=== PATIENT | male | born 1950 | race Caucasian/White ===

== ENCOUNTER → 2022-06-07 | Outpatient (CLI) | payer MEDICARE ==
--- NOTE | 2022-06-07 08:42 | US ---
EXAMINATION TYPE: US kidneys/renal and bladder DATE OF EXAM: 06/07/2022 COMPARISON: NONE CLINICAL HISTORY: C61 MALIGNANT NEOPLASM OF PROSTATE. Micro hematuria. Patient states he has prostate cancer. Hx kidney stones. EXAM MEASUREMENTS: Right Kidney: 10.7 x 5.6 x 4.4 cm Left Kidney: 10.9 x 4.8 x 5.1 cm Right Kidney: Appearance of minimal hydronephrosis/dilated renal collecting system. Anechoic appearan ce medially. Left Kidney: Appearance of slightly dilated collecting system. Bladder: Appears anechoic Bilateral Jets seen: Yes Fullness right renal pelvis without calyceal dilatation, suspect simple small thin-walled cysts centr ally right kidney. Similar findings left kidney pelvic fullness without calyceal prominence. IMPRESSION: Suspect extrarenal pelvis bilaterally. No definitive hydronephrosis.
--- NOTE | 2022-06-08 10:28 | MR ---
EXAMINATION TYPE: MR Prostate wo/w con DATE OF EXAM: 06/07/2022 COMPARISON: None. 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 TECHNIQUE: Examination was performed using a 3T MRI without an endorectal coil. Multiparametric imaging was perf ormed with T2 mutliplanar sequences, axial diffusion weighted imaging and dynamic contrast enhanced i maging, utilizing 5 mL intravenous Gadavist gadolinium contrast. FINDINGS: PROSTATE VOLUME: 5.0 cm SI x 3.5 cm AP x 5.3 cm LR Vol= 48.6 cc PSA DENSITY: 0.17 ng/ml/cc Predicted PSA equals 5.83 Slightly enlarged prostate consistent with BPH. Peripheral zone shows no areas of significant diminis hed signal on ADC mapping are restricted diffusion with some mild diffuse diminished signal on T2-philip ghted images greatest towards the base. Central transitional zone shows somewhat indistinct T2 hypoin tense area in the apex anteriorly bulging into bladder base without restricted diffusion or significa nt abnormal dynamic postcontrast enhancement. PI-RADS 2 lesion. Prostate capsule maintained. Seminal vesicles appear within normal limits. Bladder shows adequate distention with mild trabeculation. No s uspicious wall thickening. Visualized osseous structures are intact. No concerning pelvic fluid collection. IMPRESSION: A focus of clinically significant cancer is not identified. Highest Assessment Category: 2 MRI Stage: T1c N0 M0 based on review of pelvic images. False negative rates for MRI range from 5-20% depending on risk profile. Assessment Categories: 1 ? Very low (clinically significant cancer is highly unlikely to be present) 2 ? Low (clinically significant cancer is unlikely to be present) 3 ? Intermediate (the presence of clinically significant cancer is equivocal) 4 ? High (clinically significant cancer is likely to be present) 5 ? Very high (clinically significant cancer is highly likely to be present)
== END | disposition home or self-care (01) ==
LOC: RADUSWWP 07:58
PROVIDERS: ATTEND Urology
DX: C61 Malignant neoplasm of prostate (principal); R31.1 Benign essential microscopic hematuria
CPT/HCPCS: 76770; 72197; A9585